=== PATIENT | female | born 1970 | race Caucasian/White ===

== ENCOUNTER 2022-05-11 15:54 | Emergency (ER) | payer OTHER, SELFPAY ==
[2022-05-11 16:02] VITALS: BP 149/100; PULSE 73; RESP 14; TEMP 37; O2SAT 97
--- NOTE | 2022-05-11 16:26 | ED.GENADULT ---
HPI - General Adult General Date Seen: 05/11/22 Chief complaint: Laceration/Wound Stated complaint: Puncture on RT hand Time Seen by Provider: 05/11/22 15:58 Source: patient History of Present Illness HPI narrative: Patient is a 52-year-old who slipped while holding a pair of scissors and sustained a small laceration on her right hand in the thenar eminence. She was not really sure if it was more of a puncture or a slice, she says her side more than she did because she really does not want to look at it. He says it was more of a slice and puncture. Bleeding is controlled. She has no complaints of numbness or loss of function. Tetanus is not up-to-date. Related Data Home Medications Medication Instructions Recorded Confirmed rosuvastatin 20 mg tablet (Crestor) 20 mg PO DAILY 05/11/22 05/11/22 Allergies Allergy/AdvReac Type Severity Reaction Status Date / Time codeine Allergy Verified 05/11/22 16:06 [facility] Medical History (Updated 05/11/22 @ 16:25 by Palmira Miles MD) Hyperlipidemia Social History Smoking Status: Unknown if ever smoked How often do you have a drink containing alcohol: 2-3 times a week How many standard drinks containing alcohol do you have on a typical day: 1 or 2 AUDIT-C Alcohol total score: 3 Non-prescribed substance use: denies use Exam Narrative: Exam Narrative: In general, an alert, nontoxic woman. Head: Normocephalic, atraumatic. Neck: Supple. Extremities: Examination of the right hand shows a 0.5 cm laceration over the thenar eminence. Bleeding is controlled. This is relatively superficial appearing. Wound edges are well approximated and do not gape. Distal CMS is normal. Const: Vital Signs, click to edit/add: Vital Signs - 24 hr 05/11/22 16:02 Temperature 98.6 F Pulse Rate [Left P ulse Oximeter] 73 Respiratory Rate 14 Blood Pressure [Le ft Upper Arm] 149/100 H Pulse Oximetry 97 Oxygen Delivery Me thod Room Air Documenting provider has reviewed patient's vital signs: yes Course Course Hospital Course: Discussed with her that given that this is small and really wants to stay closed, I think we can put some Dermabond on this. Acknowledge that it probably will not stay on the hand for more than a couple of days but I think at that point this will have enough of a head start on healing that she will be just fine. She is comfortable with that, she would prefer not to have stitches unless absolutely necessary, and I think that we can get away without doing stitches in this case. Procedure note: Wound was cleaned, dried, and Dermabond applied with good effect. She became a little bit vagal with application of Dermabond but recovered without incident. Dressing applied. Tetanus was updated. Routine wound care. Return for signs of infection. Vital Signs Vital signs: Initial Vital Signs Temperature 98.6 F 05/11/22 16:02 Temperature Source Temporal Artery Scan 05/11/22 16:02 Pulse Rate 73 05/11/22 16:02 Respiratory Rate 14 05/11/22 16:02 Blood Pressure 149/100 H 05/11/22 16:02 Blood Pressure Mean 116 05/11/22 16:02 Blood Pressure Position Sitting 05/11/22 16:02 Pulse Oximetry 97 05/11/22 16:02 Oxygen Delivery Method 05/11/22 16:02 Vital Signs Temperature 98.6 F 05/11/22 16:02 Pulse Rate 73 05/11/22 16:02 Respiratory Rate 14 05/11/22 16:02 Blood Pressure 149/100 H 05/11/22 16:02 Pulse Oximetry 97 05/11/22 16:02 Oxygen Delivery Method 05/11/22 16:02 Temperature 98.6 F 05/11/22 16:02 Pulse Rate 73 05/11/22 16:02 Respiratory Rate 14 05/11/22 16:02 Blood Pressure 149/100 H 05/11/22 16:02 Pulse Oximetry 97 05/11/22 16:02 Oxygen Delivery Method 05/11/22 16:02 Discharge Plan Discharge Clinical Impression: Laceration Patient Disposition: Home, Self-Care Condition: Improved Instructions: Laceration (ED), Skin Adhesive Care (ED) Additional Instructions: Return for signs of infection. Prescriptions: No Action rosuvastatin [Crestor] 20 mg tablet 20 mg PO DAILY Stand Alone Forms: MyHealth Info Instructions
[2022-05-11] MEDS: TETANUS/DIPHTH/PERTUSSIS 0.5 ML SYRINGE IM (16:37)
[2022-05-11 16:38] VITALS: BP 120/90
[2022-05-11 22:56] VITALS: BP 120/90; PULSE 73; RESP 14; TEMP 37
== END 2022-05-11 16:47 | disposition home or self-care (01) ==
LOC: ED 16:34
PROVIDERS: Emergency Provider Emergency Medicine
DX: S61.411A Laceration without foreign body of right hand, initial encounter (principal); W19.XXXA Unspecified fall, initial encounter; Y93.9 Activity, unspecified; Y92.019 Unspecified place in single-family (private) house as the place of occurrence of the external cause
CPT/HCPCS: 12001; 90471; 90715; 99283